=== PATIENT | male | born 1950 | race African-American/Black ===

== ENCOUNTER 2016-09-25 16:48 | Emergency (ER) | payer MEDICAID | END 2016-09-25 20:07 | disposition home or self-care (01) | LOC: D.ER 16:48 | DX: K59.00 Constipation, unspecified (principal); H54.0 Blindness, both eyes; E11.9 Type 2 diabetes mellitus without complications; I10 Essential (primary) hypertension ==

== ENCOUNTER → 2016-10-05 12:45 | Outpatient (CLI) | payer MEDICAID | END | disposition home or self-care (01) | LOC: D.CT 12:45 | DX: R93.5 Abnormal findings on diagnostic imaging of other abdominal regions, including retroperitoneum (principal) ==